=== PATIENT | female | born 1980 | race Caucasian/White ===

== ENCOUNTER 2020-08-10 19:02 | Emergency (ER) | payer OTHER, SELFPAY | END 2020-08-10 20:34 | disposition short-term general hospital (02) | LOC: BURERS 19:02 | DX: Z04.41 Encounter for examination and observation following alleged adult rape (principal); M79.7 Fibromyalgia; F17.210 Nicotine dependence, cigarettes, uncomplicated; Z79.899 Other long term (current) drug therapy | CPT/HCPCS: 99285 ==